=== PATIENT | female | born 1960 | race African-American/Black ===

== ENCOUNTER 2021-08-21 21:05 | Emergency (ER) | payer MEDICARE ==
[~2021-08-21 21:05] MED LIST: ALTACE 10MG TAB10 MG PO; ALTACE 5MG5 MG PO; ALTACE10 MG PO; ALTACE5 MG PO; AMBIEN 10MG10 MG PO; ANTIVERT 25MG25 MG PO; ANTIVERT/5050 MG PO; ASPIRIN 32325 MG/TAB PO; ASPIRIN 81M81 MG/TA2; ASPIRIN 81M81 MG/TA2 PO; ATIVAN 1MG T1 MG/TAB PO; ATIVAN PO; ATIVAN2 MG PO; BENADRYL25 M2 PO; BENTYL10 MG PO; BUFFERED ASPIR325 M1 PO; BUFFERED ASPIRIN; CALCIUM; CALTRATE-600 W600 MG PO; CELEXA10 MG PO; CELEXA40 MG PO; CEPHALEXIN500 M1 PO; CITALOPRAM10 MG PO; CORDROL20 MG PO; CYMBALTA; CYMBALTA PO; DULCOLAX S10 MG/SUPP RC; FAMVIR250 MG PO; FLEXERIL10 MG PO; FORTAMET500 MG PO; FUROSEMIDE PO; GLUCOPHAGE PO; GLUCOPHAGE XR500 M1 PO; GLUCOPHAGE500 MG/TAB PO; INDOCIN50 MG PO; LASIX 20MG TABL20 MG PO; LASIX PO; LEVAQUIN 5500 MG/TAB PO; LEVOTHYROXIN0.175 MG PO; LEVOTHYROXINE PO; LEVOXYL0.05 MG; LORTAB 5/500 501 TAB PO; LORTAB 7.5/5001 TAB PO; MECLIZINE25 MG PO; METFORMIN HCL500 M1 PO; METRONIDAZOLE500 MG PO; MIRALAX 17GM PK1 PKT PO; MOTRIN800 MG PO; MULTIPLE VITAMI1 CAP PO; MULTIPLE VITAMI1 TAB PO; MVI; MVI PO; NORCO 325 MG-51 TAB PO; NORCO 325 MG-7.1 TAB PO; OMNICEF 300MG300 MG PO; OXYCODONE PO; PENICILLIN V500 MG PO; PERCOCET 325 MG1 TA2 PO; PERCOCET 325 MG1 TAB PO; PERCOCET 5/321 UDTAB PO; PERCOCET 500 MG1 TAB PO; PERCR 7.5 PO; PHENERGAN 25 TA25 MG PO; PHENERGAN25 MG RC; PHENERGAN50 MG/SUPP RC; PREDNISONE20 MG PO; PRIL40; PRILOSEC 20MG20 MG PO; PRILOSEC10 MG PO; PROVENTIL0.09 MG/A1 IH; SEE LIST; SKELAXIN800 MG PO; SYNTHROID0.175 MG PO; TESSALON P100 MG/CAP PO; TUSSIONEX PENN473 ML PO; VICODIN 5/5001 UDTAB PO; VIT D; VITAMIN D; ZITHROMAX 250M250 MG PO; ZITHROMAX TRI-500 MG PO; ZITHROMAX Z PA250 MG PO; ZITHROMAX250 MG PO; ZITHROMAX500 M2 PO; ZOCOR 20MG20 MG PO; ZOCOR5 MG; ZOFRAN 4MG T4 MG/TAB PO; ZOFRAN4 M1 PO; ZOLOFT; ZOLOFT100 MG PO
[2021-08-21 22:04] VITALS: TEMP 99.6
[2021-08-21 22:54] LABS: HEMATOCRIT 41.2 % (37.0-47.0); HEMOGLOBIN 13.4 g/dl (12.5-16.0); MEAN CELL VOLUME 86 fl (80.0-100.0); MEAN CORPUSCULAR HEMOGLOBIN 28 pg (27-31); MEAN CORPUSCULAR HGB CONC 33 g/dl (33.0-37.0); PLATELET COUNT 199 K/mm3 (130-400); RED BLOOD COUNT 4.77 M/mm3 (4.10-5.30); REDCELL DISTRIBUTION WIDTH-CV 15.2 % (11.5-14.5)
[2021-08-21 23:09] LABS: ALBUMIN 3.2 gm/dL (3.5-5.0); BILIRUBIN,TOTAL 0.2 mg/dL (0.2-1.2); CALCIUM 7.8 mg/dL (8.4-10.2); CREATININE, serum 1.23 mg/dL (0.57-1.11); POTASSIUM 3.5 mmol/L (3.5-4.5); TOTAL PROTEIN 6.5 gm/dL (6.2-8.1)
[2021-08-21 23:42] LABS: EOSINOPHIL 1 % (0-4); LYMPHOCYTE 75 % (20.0-51.0); NEUTROPHILS 14 % (42.0-75.2); PLATELET ESTIMATE NORMAL (NORMAL)
[2021-08-22 00:02] LABS: COLLECTION METHOD CLEAN CATCH
[2021-08-22 00:12] LABS: PH 5 (5-8); SQUAMOUS EPITHELIAL None Seen /hpf (0-10); URINE APPEARANCE Clear (CLEAR/HAZY); URINE BACTERIA None Seen /hpf (NONE SEEN); URINE BILIRUBIN Negative (NEGATIVE); URINE BLOOD Negative (NEGATIVE); URINE COLOR Yellow (YELLOW); URINE GLUCOSE Negative (NEGATIVE); URINE KETONE Negative (NEGATIVE); URINE LEUKOCYTE ESTERASE Trace (NEGATIVE); URINE NITRATE Negative (NEGATIVE); URINE PROTEIN(semi-quant) Negative (NEGATIVE); URINE RBC 0-2 /hpf (0-2); URINE UROBILINOGEN Negative (NEGATIVE)
[2021-08-22 01:11] VITALS: BP 137/58; PULSE 53
== END 2021-08-22 01:11 | disposition home or self-care (01) ==
LOC: COL.ER 21:05
PROVIDERS: Emergency Medicine
DX: U07.1 COVID-19 (principal); R94.4 Abnormal results of kidney function studies; I10 Essential (primary) hypertension; E11.9 Type 2 diabetes mellitus without complications; F17.210 Nicotine dependence, cigarettes, uncomplicated; Z79.84 Long term (current) use of oral hypoglycemic drugs; Z79.899 Other long term (current) drug therapy
CPT/HCPCS: J1885; J2405; J3010; J7030